=== PATIENT | male | born 1995 | race African-American/Black ===

== ENCOUNTER 2021-08-02 07:41 | Emergency (ER) | payer MEDICAID ==
[~2021-08-02] VITALS: Ht 170.2 cm; Wt 85.4 kg
[2021-08-02] MEDS ORDERED: DOXYCYCLINE HY100 MG PO (08:25)
[2021-08-02] MEDS ORDERED: CEFTRIAXONE 500 MG VIAL IM ONE (08:30)
[2021-08-02] MEDS ORDERED: CEFTRIAXONE 500 MG VIAL ONE (08:41)
[2021-08-02] MEDS ORDERED: LIDOCAINE HCL 1% LOCAL INJ 20 ML VIAL ONE (08:41)
== END 2021-08-02 08:42 | disposition home or self-care (01) ==
LOC: FSED 07:56
DX: Z72.51 High risk heterosexual behavior (principal); R36.9 Urethral discharge, unspecified; R30.0 Dysuria
CPT/HCPCS: 81003; 96372; 99283; J0696; J2001